=== PATIENT | male | born 1970 | race Caucasian/White ===

== ENCOUNTER 2023-09-24 11:48 | Observation (INO) ==
[2023-09-24 13:08] LABS: Hemoglobin 12.4 g/dl (14.0-18.0); Mean Corpuscular Hemoglobin 29.6 pg (25.0-34.0); Mean Corpuscular Hgb Conc 32.6 g/dL (32.0-36.0); Mean Corpuscular Volume 90.7 fL (80.0-100.0); Mean Platelet Volume 9.5 fL (9.4-12.4); Platelet Count 320 K/uL (130-400); RDW Coefficient of Variation 14.3 % (11.5-14.5); RDW Standard Deviation 46.8 fL (36.4-46.3); Red Blood Count 4.19 M/uL (4.70-6.10); White Blood Count 8.84 K/ul (4.8-10.8)
[2023-09-24 13:19] LABS: Partial Thromboplastin Ratio 0.9; Partial Thromboplastin Time 26.6 Seconds (21.0-31.0); Prothrombin Time 10.8 Seconds (9.0-12.0)
[2023-09-24 13:38] LABS: Albumin Level 4.4 gm/dl (3.4-5.0); Bilirubin,Total 0.4 mg/dl (0.2-1.0); Calcium 9.1 mg/dl (8.6-10.3); Potassium 4.4 mmol/L (3.5-5.1)
[2023-09-24 13:44] LABS: Albumin Globulin Ratio 1.3 (0.9-2); BUN Creatinine Ratio 27.3 (10-20); Creatinine Clr Calc Pharmacy 134.3 ml/min; Est GFR (African American) 112.1 ml/min; Est GFR (Non-African American) 96.7 ml/min; Globulin 3.4 gm/dl (2.5-4.0); Total Protein 7.8 gm/dl (6.0-8.3)
[2023-09-24] MEDS ORDERED: PANTOPRAZOLE BOLUS/DRIP IV STA (13:55)
[2023-09-24] MEDS ORDERED: SODIUM CHLORIDE 0.9% 1,000 ML IV ONE (13:55)
[2023-09-24] MEDS ORDERED: PANTOprazole 80 MG in DEXTROSE 5% 100 ML IV ONE (13:55)
--- NOTE | 2023-09-24 14:03 | Emergency Department Note ---
Impression & Plan GI bleed, Upper gastrointestinal hemorrhage ED Provider Note NAME: BRIAN ANDREWS AGE: 53 SEX: M : 1970 ARRIVES VIA: Walk-In INFORMANT: Patient ED PROVIDER(S): Jerome Jones DO CHIEF COMPLAINT: Black tarry stools HPI: Patient is a 83-year-old male who presents ER for black stools that have been present for about the past week. He notes they have become significantly worse over the past 2 days. Denies any headache or change in vision. No chest pain or shortness of breath. No nausea, vomiting, or diarrhea. He does admit to some bloating in his abdomen. No dysuria, urgency, or frequency. Was scoped back in May. ADDITIONAL HISTORY OBTAINED: Per HPI Chronic Medical/Social Conditions Affecting Care: Per HPI PAST MEDICAL HISTORY:See Below PAST SURGICAL HISTORY:See Below FAMILY HISTORY:See Below SOCIAL HISTORY:See Below HOME MEDICATIONS:See Below ALLERGIES:See Below VITALS:See Below PHYSICAL EXAMINATION: GENERAL: Sitting up in bed, alert, well appearing, well nourished, no distress, non-toxic EYE EXAM: normal conjunctiva. OROPHARYNX: no exudate, no erythema, lips, buccal mucosa, and tongue normal and mucous membranes are moist NECK: supple, no nuchal rigidity, no adenopathy, non-tender LUNGS: Clear to auscultation. Normal chest wall mechanics HEART: no murmurs, S1 normal and S2 normal ABDOMEN: abdomen soft, non-tender, normo-active bowel sounds, no masses, no rebound or guarding. RECTAL: Heme positive black stool UPPER EXTREMITIES: upper extremities are grossly normal. LOWER EXTREMITIES: No pitting edema. NEURO EXAM: Normal sensorium, cranial nerves II-XII grossly intact, normal speech, no gross weakness of arms, no gross weakness of legs. No drift. Finger to nose intact. Gross sensation intact. MEDICAL DECISION MAKING: Patient is a 53-year-old male who presents ER for black stools. IV was established blood work is obtained. Labs showed no significant leukocytosis or anemia. BMP along with LFTs bilirubin was unremarkable. Troponin was negative. BUN was elevated suggesting upper GI bleed. Hemoglobin did drop slightly from nearly 14 to 12.4. With this in the setting of black stools I discussed the case with the hospitalist for further evaluation to admission. Placed on a Protonix drip and bolus. External Records Reviewed: Follows with rheumatology Dr. Vee on 06/15/2023 for psoriasis Consults/Care Managements Discussions: Per MDM Triage Nursing notes reviewed. Limited review of prior medical records performed Vital Signs: reviewed and remarkable for tachy Differential diagnosis: Differential diagnoses includes but is not limited to gastritis, peptic ulcer disease, GERD, gallbladder disease, pancreatitis, small bowel obstruction, appendicitis, diverticulitis, hernia, urinary tract infection, torsion, perforation, trauma, infectious. ER treatment provided: See below Diagnostics interpreted by me include EKG and cardiac monitoring as listed below: -Cardiac Monitoring: An order was placed for continuous cardiac monitoring. The monitor shows a rate of 101 with sinus rhythm. -ECG: none -Laboratory studies:Interpreted by me as stated above in MDM and shown below. Imaging studies: Xrays: As interpreted by me:none CTs show: none Procedures:none Critical Care: None Past Med/Surg History Medical History (Updated 09/24/23 @ 17:00 by Jerome Jones DO) Psoriatic arthritis Surgical History (Updated 09/24/23 @ 15:38 by Kimberli Argueta PA-C) History of colonoscopy Family History (Updated 09/24/23 @ 15:38 by Kimberli Argueta PA-C) Other Coronary heart disease Social History (Updated 09/24/23 @ 15:38 by Kimberli Argueta PA-C) Smoking Status: Never smoker Hx Alcohol Use: Yes Hx Substance Use: No Feels Safe at Home: Yes Allergies Allergies Allergy/AdvReac Type Severity Reaction Status Date / Time No Known Allergies Allergy Mild Unverified 09/24/23 14:20 Home Meds Home Medications Medication Instructions Recorded Confirmed naproxen sodium 220 mg tablet 220 mg PO BID PRN Pain 09/24/23 09/24/23 (Aleve) Previous Rx's Medication Instructions Recorded guselkumab 100 mg/mL subcutaneous 100 mg subcut .COMPLEX #1 mL 06/04/23 auto-injector (Tremfya) Results & Data (ED) Vital Signs Vital Signs - 24 hr 09/24/23 12:06 09/24/23 14:13 Temperature 36.8 C Temperature Source Temporal Artery Scan Pulse Rate 110 H 105 H Respiratory Rate 20 Respiratory Effort / Characteristics Non-Labored Spontaneous Respiratory Depth Normal Respiratory Pattern Regular Blood Pressure 140/91 Blood Pressure Mean 107 Pulse Oximetry 98 Oxygen Delivery Method Room Air Sepsis Recent Fever Within 48 Hours No Sepsis New/Unexplained Change in Mental Status No Sepsis Action Taken by Nursing No Action Required Laboratory Data 09/24/23 12:51 09/24/23 12:51 Lab Results 09/24/23 Range/Units 12:51 WBC 8.84 (4.8-10.8) K/ul RBC 4.19 L (4.70-6.10) M/uL Hgb 12.4 L (14.0-18.0) g/dl Hct 38.0 L (42.0-52.0) % MCV 90.7 (80.0-100.0) fL MCH 29.6 (25.0-34.0) pg MCHC 32.6 (32.0-36.0) g/dL RDW Std Deviation 46.8 H (36.4-46.3) fL RDW Coeff of Azra 14.3 (11.5-14.5) % Plt Count 320 (130-400) K/uL MPV 9.5 (9.4-12.4) fL PT 10.8 (9.0-12.0) Seconds INR 1.0 (0.9-1.1) APTT 26.6 (21.0-31.0) Seconds PTT Ratio 0.9 Sodium 137 (136-145) mmol/L Potassium 4.4 (3.5-5.1) mmol/L Chloride 105 (98-107) mmol/L Carbon Dioxide 27 (21-32) mmol/L Anion Gap 5 (3-11) BUN 24 H (6-23) mg/dl Creatinine 0.88 (0.6-1.4) mg/dl Est Cr Clr Drug Dosing 134.3 ml/min Est GFR ( Amer) 112.1 ml/min Est GFR (Non-Af Amer) 96.7 ml/min BUN/Creatinine Ratio 27.3 H (10-20) Glucose 103 H (70-99(Fasting)) mg/dl Calcium 9.1 (8.6-10.3) mg/dl Total Bilirubin 0.4 (0.2-1.0) mg/dl AST 37 (13-39) U/L ALT 52 (7-52) U/L Alkaline Phosphatase 64 (34-104) U/L Troponin I High Sens 5.8 (0-20) pg/ml Total Protein 7.8 (6.0-8.3) gm/dl Albumin 4.4 (3.4-5.0) gm/dl Globulin 3.4 (2.5-4.0) gm/dl Albumin/Globulin Ratio 1.3 (0.9-2) Blood Type O Negative Antibody Screen NEGATIVE Administered Medications Pantoprazole Sodium 40 mg/ (Dextrose) 100 mls @ 20 mls/hr IV Q5H ALEXIS Stop: 10/24/23 14:14 Last Admin: 09/24/23 14:35 Dose: 8 mg/hr, 20 mls/hr Documented By: SCOTT Discontinued Medications Sodium Chloride (Nss) 1,000 mls @ 999 mls/hr IV .Q1H1M ONE Stop: 09/24/23 14:55 Last Infusion: 09/24/23 16:46 Dose: Infused Documented By: Admin: 09/24/23 14:20 Dose: 999 mls/hr Documented By: SCOTT Pantoprazole Sodium 80 mg/ (Dextrose) 120 mls @ 400 mls/hr IV NOW ONE Stop: 09/24/23 14:12 Last Infusion: 09/24/23 15:19 Dose: Infused Documented By: Admin: 09/24/23 14:35 Dose: 400 mls/hr Documented By: SCOTT Ioversol (Optiray 320 500ml) 95 ml IV ONCE ONE Stop: 09/24/23 15:59 Last Admin: 09/24/23 15:59 Dose: 95 ml Documented By: TASHI Pantoprazole Sodium (Pantoprazole Bolus/Drip) 1 each IV NOW STA Stop: 09/24/23 13:56 Last Admin: 09/24/23 14:36 Dose: Not Given Documented By: SCOTT Imaging Data Radiologist's Impression: Abdomen/Pelvis CT 09/24/23 15:31 CT SCAN OF THE ABDOMEN AND PELVIS WITH IV CONTRAST CLINICAL HISTORY: Generalized abdominal pain. COMPARISON STUDY: No priors. TECHNIQUE: Following the IV administration of 95 cc of Optiray 320, CT scan of the abdomen and pelvis is performed from the lung bases to the proximal femora. Images are reviewed in the axial, sagittal, and coronal planes. IV contrast was administered without complication. A dose lowering technique was utilized adhering to the principles of ALARA. CT DOSE: 1535.53 mGy.cm FINDINGS: Lung bases: The heart is normal in size and without pericardial effusion. Low suspicion foci of pleural-based nodularity in the right middle lobe measure up to 4 mm. These are of doubtful significance. The lung bases are otherwise clear. Liver: The contrast-enhanced liver is enlarged, measuring 22.5 cm in length. The liver demonstrates diffusely diminished attenuation indicating steatosis. Fatty sparing is seen adjacent to the gallbladder fossa.. There is no intrahepatic biliary ductal dilatation. The hepatic veins and portal veins are patent. Gallbladder: Unremarkable. Spleen: Normal in size and attenuation. Pancreas: Unremarkable. Adrenal glands: Unremarkable. Kidneys: The contrast enhanced kidneys are normal in size and without hydronephrosis. The kidneys enhance symmetrically. Abdominal vasculature: The abdominal aorta is normal in course and caliber noted is mild atherosclerotic calcification. Bowel: There is moderate colonic diverticulosis without CT evidence of acute diverticulitis. No bowel obstruction is seen. There is mild/moderate colonic fecal retention. A duodenal diverticulum is incidentally noted. The appendix is well-visualized and normal. Peritoneum: There is no intraperitoneal free air or abdominal ascites. There is a fat-containing umbilical hernia. Lymphadenopathy: None. Pelvic viscera: The prostate gland is mildly enlarged and heterogeneous. The bladder wall appears thickened and trabeculated indicating chronic outlet obstruction. Skeletal structures: No lytic or blastic lesions are seen. Mild degenerative change is noted in the spine. Degenerative sclerosis is noted in the sacroiliac joints. IMPRESSION: 1. No acute infectious or inflammatory findings are identified in the abdomen or pelvis. 2. Hepatomegaly and hepatic steatosis. 3. Colonic diverticulosis without CT evidence of acute diverticulitis. 4. Additional findings as above. ACT 112: Negative or not required by law. Electronically signed by: Deandre Keys M.D. 09/24/2023 4:23 PM Discharge Plan Visit Data Chief Complaint: GI Assessment Stated Complaint: STOMACH PAIN, BLACK STOOL ED Provider: Jerome Jones Discharge Problem: GI bleed, Upper gastrointestinal hemorrhage Forms Stand Alone Forms: My [employer] Prescriptions Prescriptions: No Action Tremfya 100 mg/mL auto-injector 100 mg subcut .COMPLEX Qty: 1 3RF Rx Instructions: 100 mg subcutaneously Every 12 weeks; naproxen sodium [Aleve] 220 mg Tablet 220 mg PO BID PRN (Reason: Pain) Referrals Referrals: Genaro Blanchard [Primary Care Provider] - Discharge Problem: GI bleed Qualifiers: GI bleed type/associated pathology: unspecified gastrointestinal hemorrhage type Qualified Code(s): K92.2 - Gastrointestinal hemorrhage, unspecified
[2023-09-24 14:05] LABS: Troponin I High Sensitivity 5.8 pg/ml (0-20)
[2023-09-24] MEDS ORDERED: PANTOprazole 40 MG in DEXTROSE 5% MINI-B 100 ML IV SCH (14:15)
--- NOTE | 2023-09-24 14:56 | History & Physical Report ---
Date of Service September 24, 2023 Assessment & Plan (1) Melena: (2) GI bleed: (3) Sinus tachycardia: Plan: Patient is 53 y/o M with PMH psoriatic arthritis presented to ER with c/o black stools x 2 days with intermittent abdominal discomfort and bloating. Uses Aleve 2-3x week In ER P: 105, BP: 140/91. H/H: 12.4/38 (Hgb was 13.9 on 03/14/23). BUN: 24, Cr: 0.8. +Hemoccult in ER In ER given 1L NSS, Protonix bolus and drip Monitor on telemetry Continue Protonix drip Type and cross PRBCs and hold Repeat H&H tonight Hold NSAIDs Obtain CT abd/pelvis Clear liquid diet NPO midnight GI consult CBC, BMP in am (4) Psoriatic arthritis: Plan: On Tremfya Follows with [facility] rheumatology Hold NSAIDs as above DVT Prophylaxis SCDs Full Code as per discussion with pt Follows with Genaro Lynn PA-C in [place] for routine care Pt was seen and care coordinated with Dr Portillo. See addendum History of Present Illness Chief Complaint: Dark stools Primary Care Provider: Genaro Lynn Patient is 53 y/o M with PMH psoriatic arthritis presented to ER with c/o black stools x 2 days. History obtained from patient and outpatient chart review. Patient states yesterday and today noticed black color BM's. Prior to that noti caitlin stools darker in coloration. Denies diarrhea. Denies bright red blood per rectum. States for past 1-1.5months with intermittent diffuse lower abdominal discomfort. Has also noticed bloating sensation past month. Takes OTC Aleve 2 pills two-three times a week for arthritis pain. Last used 2 days ago. Denies other NSAID or aspirin use. States occasional alcohol use. Reports history colonoscopy at [facility] summer 2022 with reported polyps and diverticulosis. Denies history EGD. Denies fever/chills, diaphoresis, N/V, GAXIOLA, dizziness, syncope, vision changes, neck pain, CP, SOB, palpitations, cough, paresthesias, weakness, extremity edema, rashes, urinary symptoms. Allergies Allergy/AdvReac Type Severity Reaction Status Date / Time No Known Allergies Allergy Mild Unverified 09/24/23 14:20 Home Medications Medication Instructions Recorded Confirmed Type guselkumab 100 mg/mL subcutaneous 100 mg subcut .COMPLEX #1 mL 06/04/23 09/24/23 Rx auto-injector (Tremfya) naproxen sodium 220 mg tablet 220 mg PO BID PRN Pain 09/24/23 09/24/23 History (Aleve) Past Med/Surg History Medical History Psoriatic arthritis Surgical History History of colonoscopy Family History Other Coronary heart disease Social History Smoking Status: Never smoker Hx Alcohol Use: Yes Hx Substance Use: No Feels Safe at Home: Yes Review of Systems Review of Systems: All systems reviewed & are unremarkable except as noted in HPI & below Physical Exam Physical Exam: General: no distress, obese Head: normocephalic, atraumatic Eyes: conjunctiva non-injected, anicteric ENT: normal inspection external ears, nose, mucous membranes moist Neck: supple, trachea midline Lungs: clear, no respiratory distress, no wheezing/rhonchi/rales CV: tachycardia, rate 104, regular rhythm, no murmur, no pretibial edema Abd: protuberant, normal BS, soft, slight tenderness to palpation mid abdomen without guarding Ext: no cyanosis, no calf tenderness Neuro: A&O x 3, no focal deficits noted, normal affect Skin: warm, dry, +scattered plaques Results & Data Results & Data Vital Signs (Past 12 Hours) Vital Signs Temp Pulse Resp BP Pulse Ox O2 Del Method 09/24/23 14:13 105 H 09/24/23 12:06 36.8 C 110 H 20 140/91 98 Room Air Laboratory Results Short CBC 09/24/23 Range/Units 12:51 WBC 8.84 (4.8-10.8) K/ul Hgb 12.4 L (14.0-18.0) g/dl Hct 38.0 L (42.0-52.0) % Plt Count 320 (130-400) K/uL BMP 09/24/23 12:51 Sodium 137 Potassium 4.4 Chloride 105 Carbon Dioxide 27 BUN 24 H Creatinine 0.88 Glucose 103 H Calcium 9.1 Liver Function 09/24/23 Range/Units 12:51 Total Bilirubin 0.4 (0.2-1.0) mg/dl AST 37 (13-39) U/L ALT 52 (7-52) U/L Alkaline Phosphatase 64 (34-104) U/L Albumin 4.4 (3.4-5.0) gm/dl ECG Additional Comments: sinus tachycardia, rate 109 per my interpretation Supervising Physician Co-Signing Physician Notes Patient is a 53-year-old male with history of psoriatic arthritis and no other significant past medical history presents with history of black stools since 2 days duration. He admits to have polyps and diverticulosis on prior colonoscopy. He also believes he could have hemorrhoids. He uses Aleve 2-3 times per week for psoriatic arthritis. Please review HPI for complete details of presentation. I personally reviewed blood work, imaging studies available at the time of admission. On exam patient is obese, no apparent distress, normocephalic atraumatic, EOMI, normal breath sounds, clear to auscultation, S1- S2, no murmur, trace pedal edema, abdomen soft, mild tender, normal bowel sounds, mildly distended, alert, awake, oriented, grossly no focal deficits,+ scattered psoriatic rash. Patient is admitted for management of melena. Agree with IV Protonix, gentle IV fluids. Monitor H&H and transfuse PRBCs as needed. CT abdomen requested. GI consulted. N.p.o. after midnight. Avoid NSAIDs. Blood consent obtained. I personally reviewed the record. Patient is interviewed and examined at bedside. Patient's care is coordinated with Kimberli Argueta PA-C. Please refer to the documentation above for details of patient's presentation and for discussion of other issues.
--- NOTE | 2023-09-24 15:42 | Electrocardiogram Report ---
Test Reason : Blood Pressure : / mmHG Vent. Rate : 109 BPM Atrial Rate : 109 BPM P-R Int : 150 ms QRS Dur : 112 ms QT Int : 346 ms P-R-T Axes : 066 -08 006 degrees QTc Int : 465 ms Sinus tachycardia Poor R wave progression, consider anterior [place] vs. lead placement vs. LVH No previous ECGs available Confirmed by Jay Dejesus ([id number]) on 09/24/2023 3:42:35 PM Referred By: Confirmed By:Randy Dejesus
[2023-09-24] MEDS ORDERED: OPTIRAY 320 500ml IV ONE (15:58)
--- NOTE | 2023-09-24 16:25 | CT Scan Report ---
CT SCAN OF THE ABDOMEN AND PELVIS WITH IV CONTRAST CLINICAL HISTORY: Generalized abdominal pain. COMPARISON STUDY: No priors. TECHNIQUE: Following the IV administration of 95 cc of Optiray 320, CT scan of the abdomen and pelvi s is performed from the lung bases to the proximal femora. Images are reviewed in the axial, sagittal , and coronal planes. IV contrast was administered without complication. A dose lowering technique wa s utilized adhering to the principles of ALARA. CT DOSE: 1535.53 mGy.cm FINDINGS: Lung bases: The heart is normal in size and without pericardial effusion. Low suspicion foci of pleur al-based nodularity in the right middle lobe measure up to 4 mm. These are of doubtful significance. The lung bases are otherwise clear. Liver: The contrast-enhanced liver is enlarged, measuring 22.5 cm in length. The liver demonstrates d iffusely diminished attenuation indicating steatosis. Fatty sparing is seen adjacent to the gallbladd er fossa.. There is no intrahepatic biliary ductal dilatation. The hepatic veins and portal veins are patent. Gallbladder: Unremarkable. Spleen: Normal in size and attenuation. Pancreas: Unremarkable. Adrenal glands: Unremarkable. Kidneys: The contrast enhanced kidneys are normal in size and without hydronephrosis. The kidneys enh ance symmetrically. Abdominal vasculature: The abdominal aorta is normal in course and caliber noted is mild atherosclero tic calcification. Bowel: There is moderate colonic diverticulosis without CT evidence of acute diverticulitis. No bowel obstruction is seen. There is mild/moderate colonic fecal retention. A duodenal diverticulum is inci dentally noted. The appendix is well-visualized and normal. Peritoneum: There is no intraperitoneal free air or abdominal ascites. There is a fat-containing umbi lical hernia. Lymphadenopathy: None. Pelvic viscera: The prostate gland is mildly enlarged and heterogeneous. The bladder wall appears thi ckened and trabeculated indicating chronic outlet obstruction. Skeletal structures: No lytic or blastic lesions are seen. Mild degenerative change is noted in the s pine. Degenerative sclerosis is noted in the sacroiliac joints. IMPRESSION: 1. No acute infectious or inflammatory findings are identified in the abdomen or pelvis. 2. Hepatomegaly and hepatic steatosis. 3. Colonic diverticulosis without CT evidence of acute diverticulitis. 4. Additional findings as above. ACT 112: Negative or not required by law. Electronically signed by: Deandre Keys M.D. 09/24/2023 4:23 PM
[2023-09-24] MEDS ORDERED: SODIUM CHLORIDE 0.9% 250 ML IV PRN (17:49)
[2023-09-24] MEDS ORDERED: ONDANSETRON INJ 2 MG/ML 2 ML VIAL IV PRN (17:49)
[2023-09-24] MEDS ORDERED: SODIUM CHLORIDE 0.9% 1,000 ML IV SCH (17:49)
[2023-09-24] MEDS ORDERED: ACETAMINOPHEN 325 MG TAB PO PRN (17:49)
[2023-09-24] MEDS: PANTOprazole 40 MG in DEXTROSE 5% MINI-B 100 ML IV SCH ×2 (19:48→23:52)
[2023-09-24 20:04] LABS: Hemoglobin 10.9 g/dl (14.0-18.0)
[2023-09-25] MEDS: PANTOprazole 40 MG in DEXTROSE 5% MINI-B 100 ML IV SCH ×2 (05:24→10:23)
[2023-09-25 07:12] LABS: Hematocrit (blood only) 29.7 % (42.0-52.0); Hemoglobin 9.9 g/dl (14.0-18.0); Mean Corpuscular Hemoglobin 29.3 pg (25.0-34.0); Mean Corpuscular Hgb Conc 33.3 g/dL (32.0-36.0); Mean Corpuscular Volume 87.9 fL (80.0-100.0); Mean Platelet Volume 9.9 fL (9.4-12.4); Platelet Count 244 K/uL (130-400); RDW Coefficient of Variation 14.3 % (11.5-14.5); RDW Standard Deviation 45.5 fL (36.4-46.3); Red Blood Count 3.38 M/uL (4.70-6.10); White Blood Count 6.64 K/ul (4.8-10.8)
[2023-09-25 07:28] LABS: BUN Creatinine Ratio 27.9 (10-20); Creatinine Clr Calc Pharmacy 174.5 ml/min; Est GFR (African American) 124.6 ml/min; Est GFR (Non-African American) 107.5 ml/min
--- NOTE | 2023-09-25 08:11 | Hospitalist Progress Note ---
Date of Service September 25, 2023 Assessment & Plan (1) Melena: (2) GI bleed: (3) Sinus tachycardia: Plan: Patient is 53 y/o M with PMH psoriatic arthritis presented to ER with c/o black stools x 2 days with intermittent abdominal discomfort and bloating. Uses Aleve 2-3x week In ER P: 105, BP: 140/91. H/H: 12.4/38 (Hgb was 13.9 on 03/14/23). BUN: 24, Cr: 0.8. +Hemoccult in ER In ER given 1L NSS, Protonix bolus and drip Monitor on telemetry Continue Protonix drip Type and cross PRBCs and hold Repeat H&H tonight Hold NSAIDs Obtained CT abd/pelvis - 1. No acute infectious or inflammatory findings are identified in the abdomen or pelvis. 2. Hepatomegaly and hepatic steatosis. 3. Colonic diverticulosis without CT evidence of acute diverticulitis. Current Hgb 9.9 GI consulted - pt underwent EGD today (09/25/2023) Findings: LA Grade A (one or more mucosal breaks less than 5 mm, not extending between tops of 2 mucosal folds) esophagitis with no bleeding was found. Two non-bleeding superficial gastric ulcers with a clean ulcer base (Kaleb Class III) were found in the gastric antrum. The largest lesion was 5 mm in largest dimension. Biopsies were taken with a cold forceps for Helicobacter pylori testing. One non-bleeding cratered duodenal ulcer with a clean ulcer base (Kaleb Class III) was found in the duodenal bulb. The lesion was 6 mm in largest dimension. Impression: - LA Grade A reflux esophagitis with no bleeding. - Non-bleeding gastric ulcers with a clean ulcer base (Kaleb Class III). Biopsied. - Non-bleeding duodenal ulcer with a clean ulcer base (Kaleb Class III). Recommendation: - [facility] discharge same day. - Use Prilosec (omeprazole) 40 mg PO BID for 2 months. - No aspirin, ibuprofen, naproxen, or other non-steroidal anti-inflammatory drugs. - Advance diet as tolerated. - Repeat upper endoscopy in 2 months to check healing. Pt is feeling well after endoscopy. Advised not to use NSAIDs. Avoid acidic, spicy foods, caffein and alcohol. Pt has a follow up appointment scheduled w/ pcp for 10/02. PPI prescribed. Should continue for 2 months. Repeat endoscopy in 2 months to ensure healing. (4) Psoriatic arthritis: Plan: On Tremfya Follows with [facility] rheumatology Hold NSAIDs as above DVT Prophylaxis SCDs Full Code as per discussion with pt Follows with Genaro Lynn PA-C in [place] for routine care Admission and Anticipated Discharge Date Admission Date: September 24, 2023 Subjective Pt seen in follow up of melena Hgb 9.9 this AM GI consulted and pt underwent EGD- esophagitis, gastric ulcers, duodenal ulcer Currently pt is feeling well and inquiring about discharge Review of Systems Review of Systems: All systems reviewed & are unremarkable except as noted in Subjective Physical Exam Physical Exam: General: no distress, obese Head: normocephalic, atraumatic Eyes: conjunctiva non-injected, anicteric ENT: normal inspection external ears, nose, mucous membranes moist Neck: supple, trachea midline Lungs: clear, no respiratory distress, no wheezing/rhonchi/rales CV: rrr, regular rhythm, no murmur, no pretibial edema Abd: +obese, normal BS, soft, slight tenderness to palpation mid abdomen without guarding Ext: moves extremities Neuro: A&O x 3, no focal deficits noted, normal affect Skin: warm, dry, +scattered plaques Results & Data Results & Data Vital Signs (Past 12 Hours) Vital Signs Temp Pulse Pulse Resp BP BP Pulse Ox 09/25/23 05:58 85 09/25/23 03:34 36.6 C 87 18 118/77 98 09/24/23 23:53 36.6 C 93 H 18 127/82 97 09/24/23 23:07 36.6 C 93 H 18 127/82 97 O2 Del Method 09/25/23 05:58 09/25/23 03:34 Room Air 09/24/23 23:53 Room Air 09/24/23 23:07 Room Air Laboratory Results 09/25/23 09/24/23 09/24/23 Range/Units 06:26 19:43 12:51 WBC 6.64 8.84 (4.8-10.8) K/ul RBC 3.38 L 4.19 L (4.70-6.10) M/uL Hgb 9.9 L 10.9 L 12.4 L (14.0-18.0) g/dl Hct 29.7 L 33.0 L 38.0 L (42.0-52.0) % MCV 87.9 90.7 (80.0-100.0) fL MCH 29.3 29.6 (25.0-34.0) pg MCHC 33.3 32.6 (32.0-36.0) g/dL RDW Std Deviation 45.5 46.8 H (36.4-46.3) fL RDW Coeff of Azra 14.3 14.3 (11.5-14.5) % Plt Count 244 320 (130-400) K/uL MPV 9.9 9.5 (9.4-12.4) fL PT 10.8 (9.0-12.0) Seconds INR 1.0 (0.9-1.1) APTT 26.6 (21.0-31.0) Seconds PTT Ratio 0.9 Sodium 138 137 (136-145) mmol/L Potassium 4.0 4.4 (3.5-5.1) mmol/L Chloride 107 105 (98-107) mmol/L Carbon Dioxide 26 27 (21-32) mmol/L Anion Gap 5 5 (3-11) BUN 19 24 H (6-23) mg/dl Creatinine 0.68 0.88 (0.6-1.4) mg/dl Est Cr Clr Drug Dosing 174.5 134.3 ml/min Est GFR ( Amer) 124.6 112.1 ml/min Est GFR (Non-Af Amer) 107.5 96.7 ml/min BUN/Creatinine Ratio 27.9 H 27.3 H (10-20) Glucose 110 H 103 H (70-99(Fasting)) mg/dl Calcium 8.0 L 9.1 (8.6-10.3) mg/dl Total Bilirubin 0.4 (0.2-1.0) mg/dl AST 37 (13-39) U/L ALT 52 (7-52) U/L Alkaline Phosphatase 64 (34-104) U/L Troponin I High Sens 5.8 (0-20) pg/ml Total Protein 7.8 (6.0-8.3) gm/dl Albumin 4.4 (3.4-5.0) gm/dl Globulin 3.4 (2.5-4.0) gm/dl Albumin/Globulin Ratio 1.3 (0.9-2) Blood Type O Negative Blood Type Recheck O Negative Antibody Screen NEGATIVE Medications Administered Current Inpatient Medications Acetaminophen (Acetaminophen 325 Mg Tab) 650 mg PO Q4H PRN PRN Reason: Pain or Fever Stop: 10/24/23 17:48 Pantoprazole Sodium 40 mg/ (Dextrose) 100 mls @ 20 mls/hr IV Q5H ALEXIS Stop: 10/24/23 17:48 Last Admin: 09/25/23 05:24 Dose: 8 mg/hr, 20 mls/hr Ondansetron HCl (Ondansetron Inj 2 Mg/Ml 2 Ml Vial) 4 mg IV Q6H PRN PRN Reason: Nausea Stop: 10/24/23 17:48 (2) GI bleed GI bleed type/associated pathology: unspecified gastrointestinal hemorrhage type Qualified Code(s): K92.2 - Gastrointestinal hemorrhage, unspecified
--- NOTE | 2023-09-25 10:43 | Anesthesiology Consultation ---
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 Consults Requested none Proposed Anesthesia Anesthesia Type: MAC History Surgery Operation Date: 09/25/23 16:45 Proposed Procedures p Esophagogastroduodenoscopy Dr Stephanie Brown MD Height/Weight Height: 6 ft Weight: 134.9 kg Allergies Allergy/AdvReac Type Severity Reaction Status Date / Time No Known Allergies Allergy Mild Unverified 09/24/23 14:20 Medications Home Medications Medication Instructions Recorded Confirmed Last Taken guselkumab 100 mg/mL subcutaneous 100 mg subcut .COMPLEX #1 mL 06/04/23 09/24/23 2 Months Ago auto-injector (Tremfya) ~07/25/23 naproxen sodium 220 mg tablet 220 mg PO BID PRN Pain 09/24/23 09/24/23 Unknown (Aleve) Active Medications Generic Name Dose Route Start Last Admin Trade Name Freq PRN Reason Stop Dose Admin Pantoprazole Sodium 40 mg/ 100 mls @ 20 mls/hr 09/24/23 17:49 09/25/23 10:23 Dextrose IV 10/24/23 17:48 8 mg/hr Q5H ALEXIS 20 mls/hr Administration 8 MG/HR Past Medical History Medical History (Updated 09/25/23 @ 10:45 by Jay Baird MD) Encounter for pre-operative examination Psoriatic arthritis Past Family History Family History Other Coronary heart disease Past Surgical History Surgical History History of colonoscopy Social History Smoking Status: Former smoker Hx Alcohol Use: Yes Alcohol type: beer alcohol intake frequency: holidays/special occasions only Hx Substance Use: No Physical Exam Vital Signs Last Vital Signs Temp 36.6 C 09/25/23 08:14 Pulse 84 09/25/23 08:14 Resp 17 09/25/23 08:14 BP 123/78 09/25/23 08:14 Pulse Ox 96 09/25/23 08:14 O2 Del Method Room Air 09/25/23 08:14 Testing Laboratory Results 09/25/23 06:26 09/25/23 06:26 PT 10.8 Seconds (9.0-12.0) 09/24/23 12:51 INR 1.0 (0.9-1.1) 09/24/23 12:51 APTT 26.6 Seconds (21.0-31.0) 09/24/23 12:51 Blood Type O Negative 09/24/23 12:51 Antibody Screen NEGATIVE 09/24/23 12:51 Electrocardiogram Date: 09/24/23 Test Reason : Blood Pressure : / mmHG Vent. Rate : 109 BPM Atrial Rate : 109 BPM P-R Int : 150 ms QRS Dur : 112 ms QT Int : 346 ms P-R-T Axes : 066 -08 006 degrees QTc Int : 465 ms Sinus tachycardia Poor R wave progression, consider anterior NE vs. lead placement vs. LVH No previous ECGs available Confirmed by Jay Dejesus ([id number]) on 09/24/2023 3:42:35 PM
--- NOTE | 2023-09-25 10:48 | Gastrointestinal Consultation ---
Date of Consultation September 25, 2023 Assessment & Plan (1) Melena: (2) Acute blood loss anemia: Plan Agree w PPI drip, IV fluids, NPO EGD today by Dr. Brown. Further recommendations to follow. Supervising Physician Co-Signing Physician Notes Attending attestation I have seen, examined this patient, and agree with the findings and above by our mid-level provider ANDREY Ramachandran, with the following additions: - Melena without Hemodynamic compromise, will plan on EGD today History of Present Illness Reason for Consultation: Melena Requesting Physician: Lorelei Cabrera PA-C Attending Physician: Diony Lizarraga MD History of Present Illness Mr. Willy Tai is a 53-year-old male patient of IHSAN Bishop with a history of psoriatic arthritis on Tremfya, taking Aleve 2 tabs every 3x/wk), otherwise and diverticulosis no significant past medical/surgical history who presented to the emergency department yesterday because he has had black bowel movements. Bowel movements continue to be formed but are very black. He has passed 1/day for the past 2 or 3 days. He has also had abdominal bloating during this time. He has not had any chest pain, shortness of breath, abdominal pain or nausea or vomiting. On arrival, hemoglobin is 10.9. Most recent prior hemoglobin in February was 13.9. CTAP with IV shows hepatomegaly and fatty liver (patient was aware previously) and diverticulosis. He is awake alert oriented, hemodynamically stable, able to ambulate without assistance. He has never previously had an EGD. He has had colonoscopies most recently in May of this year with diverticulosis no other abnormalities. When asked about prior abdominal problems, he mentioned that he had nausea about a year ago when he was on written [place]. When that medication was changed and nausea resolved. Allergies Allergy/AdvReac Type Severity Reaction Status Date / Time No Known Allergies Allergy Mild Unverified 09/24/23 14:20 Home Medications Medication Instructions Recorded Confirmed Type guselkumab 100 mg/mL subcutaneous 100 mg subcut .COMPLEX #1 mL 06/04/23 09/24/23 Rx auto-injector (Tremfya) naproxen sodium 220 mg tablet 220 mg PO BID PRN Pain 11/29/23 11/29/23 History (Aleve) Patient History Medical History (Updated 09/25/23 @ 10:57 by ANDREY Solis) Encounter for pre-operative examination Psoriatic arthritis Surgical History History of colonoscopy Family History Other Coronary heart disease Social History Smoking Status: Former smoker Hx Alcohol Use: Yes Alcohol type: beer Hx Substance Use: No Preferred Language: Latvian 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 Saxophones Required: No Beliefs That Will Affect Care: None Current Living Situation: Family Current Living Situation Comment: Lives at home with son and daughter Feels Safe at Home: Yes Safety Concerns: Feels Safe At This Time Assistive Devices: None Review of Systems Review of Systems: ROS: Gen: Denies weakness, fevers, weight loss Eyes: No eye redness, or pain, no recent vision changes Resp: No SOB, no cough Cardio: No palpitations/irregular beats, no chest pain GI: As per HPI, otherwise (-) : Denies pain on urination Skin: No jaundice, itching or new rashes Physical Exam Constitutional: WD/WN, vitals as above Eyes: PERRL, conjunctivae normal, anicteric sclerae ENMT: external ear and nose normal, oropharynx normal Neck: trachea midline, no thyromegaly Respiratory: normal respiratory effort, lungs clear to auscultation Cardiovascular: RRR, no murmur, no edema Gastrointestinal (Abdomen): normal bowel sounds, soft, nontender, no hepatosplenomegaly Musculoskeletal: no cyanosis or clubbing, extremities motor strength 5/5 + arthritic nodules of the MCPs, PIPs. Skin: no rashes, warm and dry Neurologic: patellar DTR's 2+ bilat, sensation intact Psychiatric: A+Ox3, euthymic affect Lymphatic: no cervical or axillary lymphadenopathy Results & Data Vital Signs (Past 12 Hours) Vital Signs Temp Pulse Pulse Resp BP BP Pulse Ox 09/25/23 08:14 36.6 C 84 17 123/78 96 09/25/23 05:58 85 09/25/23 03:34 36.6 C 87 18 118/77 98 09/24/23 23:53 36.6 C 93 H 18 127/82 97 09/24/23 23:07 36.6 C 93 H 18 127/82 97 O2 Del Method 09/25/23 08:14 Room Air 09/25/23 05:58 09/25/23 03:34 Room Air 09/24/23 23:53 Room Air 09/24/23 23:07 Room Air Laboratory Results WBC 8.8, Hb 10.9, HCT 33, PLT S3 20, PT 10, INR 1, NA 137, K4.4, CL 105, CO2 27, BUN 24, CR 0.8, glucose 103 T. bili 0.4, AST 37, ALT 52, alk phos 64 Diagnostic Findings CTAP with IV 09/24/2023 1. No acute infectious or inflammatory findings are identified in the abdomen or pelvis. 2. Hepatomegaly and hepatic steatosis. 3. Colonic diverticulosis without CT evidence of acute diverticulitis.
--- NOTE | 2023-09-25 12:19 | GI REPORT ---
Patient Name: Willy Tai Procedure Date: 09/25/2023 12:09 PM Date of : 1970 Admit Type: Inpatient Age: 53 Gender: Male Attending MD: Contreras Brown MD, Procedure: Upper GI endoscopy Providers: Contreras Brown MD Referring MD: Genaro Blanchard Indications: Melena Medicines: Propofol per Anesthesia Complications: No immediate complications. Estimated blood loss: None. Estimated Blood Loss: Estimated blood loss: none. Procedure: Pre-Anesthesia Assessment: - Pre-Anesthesia Assessment: - Prior to the procedure, a History and Physical was performed, and patient medications, allergies and sensitivities were reviewed. The patient's tolerance of previous anesthesia was reviewed. Please see alaTest for complete details. - The risks and benefits of the procedure and the sedation options and risks were discussed with the patient. All questions were answered and informed consent was obtained. - Patient identification and proposed procedure were verified prior to the procedure by the physician and the nurse. The procedure was verified in the pre-procedure area in the procedure room. After obtaining informed consent, the endoscope was passed carefully and meticuously under direct vision and only advanced when the lumen was clearly identified, C02 insuflation was utilized throughout the entirity of the procedure. Throughout the procedure, the patient's blood pressure, pulse, and oxygen saturations were monitored continuously. After obtaining informed consent, the endoscope was passed under direct vision. Throughout the procedure, the patient's blood pressure, pulse, and oxygen saturations were monitored continuously. The Endoscope was introduced through the mouth, and advanced to the second part of duodenum. The upper GI endoscopy was accomplished without difficulty. The patient tolerated the procedure well. Findings: LA Grade A (one or more mucosal breaks less than 5 mm, not extending between tops of 2 mucosal folds) esophagitis with no bleeding was found. Two non-bleeding superficial gastric ulcers with a clean ulcer base (Kaleb Class III) were found in the gastric antrum. The largest lesion was 5 mm in largest dimension. Biopsies were taken with a cold forceps for Helicobacter pylori testing. One non-bleeding cratered duodenal ulcer with a clean ulcer base (Kaleb Class III) was found in the duodenal bulb. The lesion was 6 mm in largest dimension. Impression: - LA Grade A reflux esophagitis with no bleeding. - Non-bleeding gastric ulcers with a clean ulcer base (Kaleb Class III). Biopsied. - Non-bleeding duodenal ulcer with a clean ulcer base (Kaleb Class III). Recommendation: - Return patient to [facility] for possible discharge same day. - Use Prilosec (omeprazole) 40 mg PO BID for 2 months. - No aspirin, ibuprofen, naproxen, or other non-steroidal anti-inflammatory drugs. - Advance diet as tolerated. - Repeat upper endoscopy in 2 months to check healing. Contreras Brown MD 09/25/2023 12:19:10 PM This report has been signed electronically. Note Initiated On: 09/25/2023 12:09 PM Number of Addenda: 0 I attest to the content of the Intraoperative Record and orders documented therein, exceptions below {[id number]}
[2023-09-25] MEDS ORDERED: LIDOCAINE 2% 2 ML VIAL/AMP(20MG/ML) INFIL ONE (12:21)
[2023-09-25] MEDS ORDERED: PROPOFOL IV EMULSION 10 MG/ML 20 ML VIAL IV ONE (12:21)
--- NOTE | 2023-09-25 13:51 | Discharge Summary ---
Date of Service September 25, 2023 Admission HPI Per Admitting Provider Patient is 53 y/o M with PMH psoriatic arthritis presented to ER with c/o black stools x 2 days. History obtained from patient and outpatient chart review. Patient states yesterday and today noticed black color BM's. Prior to that noticed stools darker in coloration. Denies diarrhea. Denies bright red blood per rectum. States for past 1-1.5months with intermittent diffuse lower abdominal discomfort. Has also noticed bloating sensation past month. Takes OTC Aleve 2 pills two-three times a week for arthritis pain. Last used 2 days ago. Denies other NSAID or aspirin use. States occasional alcohol use. Reports h istory colonoscopy at [facility] summer 2022 with reported polyps and diverticulosis. Denies history EGD. Denies fever/chills, diaphoresis, N/V, GAXIOLA, dizziness, syncope, vision changes, neck pain, CP, SOB, palpitations, cough, paresthesias, weakness, extremity edema, rashes, urinary symptoms. Admission Exam Per Admitting Provider General: no distress, obese Head: normocephalic, atraumatic Eyes: conjunctiva non-injected, anicteric ENT: normal inspection external ears, nose, mucous membranes moist Neck: supple, trachea midline Lungs: clear, no respiratory distress, no wheezing/rhonchi/rales CV: tachycardia, rate 104, regular rhythm, no murmur, no pretibial edema Abd: protuberant, normal BS, soft, slight tenderness to palpation mid abdomen without guarding Ext: no cyanosis, no calf tenderness Neuro: A&O x 3, no focal deficits noted, normal affect Skin: warm, dry, +scattered plaques Principal Diagnosis Esophagitis, gastric ulcers, duodenal ulcer Discharge Exam General: no distress, obese Head: normocephalic, atraumatic Eyes: conjunctiva non-injected, anicteric ENT: normal inspection external ears, nose, mucous membranes moist Neck: supple, trachea midline Lungs: clear, no respiratory distress, no wheezing/rhonchi/rales CV: rrr, regular rhythm, no murmur, no pretibial edema Abd: +obese, normal BS, soft, slight tenderness to palpation mid abdomen without guarding Ext: moves extremities Neuro: A&O x 3, no focal deficits noted, normal affect Skin: warm, dry, +scattered plaques Discharge Data Allergies Allergy/AdvReac Type Severity Reaction Status Date / Time No Known Allergies Allergy Mild Unverified 09/24/23 14:20 Consultations 09/24/23 14:13 ED Decision to Admit Stat 09/24/23 17:49 Consult Gastroenterology Routine Procedures Performed Operation Date: 09/25/23 16:45 Actual Procedures p EGD Biopsy Cytology - Contreras Brown MD Ordered Studies 09/24/23 15:31 CT Abd and Pelvis [CT abd pelvis IV con only] Urgent FINDINGS: Lung bases: The heart is normal in size and without pericardial effusion. Low suspicion foci of pleural-based nodularity in the right middle lobe measure up to 4 mm. These are of doubtful significance. The lung bases are otherwise clear. Liver: The contrast-enhanced liver is enlarged, measuring 22.5 cm in length. The liver demonstrates diffusely diminished attenuation indicating steatosis. Fatty sparing is seen adjacent to the gallbladder fossa.. There is no intrahepatic biliary ductal dilatation. The hepatic veins and portal veins are patent. Gallbladder: Unremarkable. Spleen: Normal in size and attenuation. Pancreas: Unremarkable. Adrenal glands: Unremarkable. Kidneys: The contrast enhanced kidneys are normal in size and without hydronephrosis. The kidneys enhance symmetrically. Abdominal vasculature: The abdominal aorta is normal in course and caliber noted is mild atherosclerotic calcification. Bowel: There is moderate colonic diverticulosis without CT evidence of acute diverticulitis. No bowel obstruction is seen. There is mild/moderate colonic fecal retention. A duodenal diverticulum is incidentally noted. The appendix is well-visualized and normal. Peritoneum: There is no intraperitoneal free air or abdominal ascites. There is a fat-containing umbilical hernia. Lymphadenopathy: None. Pelvic viscera: The prostate gland is mildly enlarged and heterogeneous. The bladder wall appears thickened and trabeculated indicating chronic outlet obstruction. Skeletal structures: No lytic or blastic lesions are seen. Mild degenerative change is noted in the spine. Degenerative sclerosis is noted in the sacroiliac joints. IMPRESSION: 1. No acute infectious or inflammatory findings are identified in the abdomen or pelvis. 2. Hepatomegaly and hepatic steatosis. 3. Colonic diverticulosis without CT evidence of acute diverticulitis. 4. Additional findings as above. Hospital Course (1) Melena: (2) GI bleed: (3) Sinus tachycardia: Patient is 53 y/o M with PMH psoriatic arthritis presented to ER with c/o black stools x 2 days with intermittent abdominal discomfort and bloating. Uses Aleve 2-3x week In ER P: 105, BP: 140/91. H/H: 12.4/38 (Hgb was 13.9 on 03/14/23). BUN: 24, Cr: 0.8. +Hemoccult in ER In ER given 1L NSS, Protonix bolus and drip Monitor on telemetry Continue Protonix drip Type and cross PRBCs and hold Repeat H&H tonight Hold NSAIDs Obtained CT abd/pelvis - 1. No acute infectious or inflammatory findings are identified in the abdomen or pelvis. 2. Hepatomegaly and hepatic steatosis. 3. Colonic diverticulosis without CT evidence of acute diverticulitis. Current Hgb 9.9 GI consulted - pt underwent EGD today (09/25/2023) Findings: LA Grade A (one or more mucosal breaks less than 5 mm, not extending between tops of 2 mucosal folds) esophagitis with no bleeding was found. Two non-bleeding superficial gastric ulcers with a clean ulcer base (Kaleb Class III) were found in the gastric antrum. The largest lesion was 5 mm in largest dimension. Biopsies were taken with a cold forceps for Helicobacter pylori testing. One non-bleeding cratered duodenal ulcer with a clean ulcer base (Kaleb Class III) was found in the duodenal bulb. The lesion was 6 mm in largest dimension. Impression: - LA Grade A reflux esophagitis with no bleeding. - Non-bleeding gastric ulcers with a clean ulcer base (Kaleb Class III). Biopsied. - Non-bleeding duodenal ulcer with a clean ulcer base (Kaleb Class III). Recommendation: - [facility] to [facility] for possible discharge same day. - Use Prilosec (omeprazole) 40 mg PO BID for 2 months. - No aspirin, ibuprofen, naproxen, or other non-steroidal anti-inflammatory drugs. - Advance diet as tolerated. - Repeat upper endoscopy in 2 months to check healing. Pt is feeling well after endoscopy. Advised not to use NSAIDs. Avoid acidic, spicy foods, caffein and alcohol. Pt has a follow up appointment scheduled w/ pcp for 10/02. PPI prescribed. Should continue for 2 months. Repeat endoscopy in 2 months to ensure healing. (4) Psoriatic arthritis: On Tremfya Follows with [facility] rheumatology Hold NSAIDs as above Total Time Total Time Spent Total Time Spent (In Minutes): 40 Discharge Plan Discharge Items Patient Disposition: Home - Self-Care Reason For Visit: MELENA Discharge Diagnosis: Esophagitis, gastric ulcers, duodenal ulcer Activity: Per Instructions section Non-emergency contact: Primary Care Provider Call non-emergency contact if: you have any medication questions and your symptoms worsen Follow-up/Referrals: Genaro Blanchard [Primary Care Provider] - 10/02/23 7:20 am Diet: Regular Diet Comment: Avoid caffeine, alcohol, spicy or acidic foods Addtl Attending Provider Instructions: Follow up with your primary care physician within 1 week. The appointment was scheduled for you for October 02. Do not take any aspirin, ibuprofen, naproxen or any other NSAIDs. Repeat upper endoscopy in 2 months to check healing. For pain , you can take Tylenol 1000 mg three times a day. Pending Studies at Discharge: Yes Studies:: Biopsy from endoscopy Stand-Alone Forms: My [facility], Smoking Cessation Medications and DC Order Prescriptions: New pantoprazole [Protonix] 40 mg tablet,delayed release (DR/EC) 40 mg PO BID 30 Days Qty: 60 0RF Continued Tremfya 100 mg/mL auto-injector 100 mg subcut .COMPLEX Qty: 1 3RF Rx Instructions: 100 mg subcutaneously Every 12 weeks; Discontinued naproxen sodium [Aleve] 220 mg Tablet 220 mg PO BID PRN (Reason: Pain) Discharge Orders: Discharge Order (Routine); Ordered 09/25/23 Ordered By: Diony Lizarraga Admission Data Admit Date/Time: 09/24/23 15:01 Attending Provider: Diony Lizarraga Admit Provider: Devon Portillo Primary Care Provider: Genaro Blanchard Other Providers: Devon Portillo; Contreras Brown; Puma Nesbitt
--- NOTE | 2023-09-25 15:13 | Anesthesiology Progress Note ---
Date of Service September 25, 2023 Anesthesia Post Procedure Vital Signs Vital Signs: Temp Pulse Pulse Resp BP BP Pulse Ox 09/25/23 13:56 36.8 C 75 16 124/72 143/85 H 98 09/25/23 12:58 75 16 124/72 98 09/25/23 12:33 76 16 133/70 98 09/25/23 12:18 85 16 116/86 95 09/25/23 11:10 36.8 C 89 18 119/81 97 09/25/23 11:09 36.3 C L 82 18 143/85 H 96 09/25/23 08:14 36.6 C 84 17 123/78 96 09/25/23 05:58 85 09/25/23 03:34 36.6 C 87 18 118/77 98 09/24/23 23:53 36.6 C 93 H 18 127/82 97 09/24/23 23:07 36.6 C 93 H 18 127/82 97 09/24/23 20:07 96 H 18 120/94 96 09/24/23 20:07 09/24/23 19:53 96 H 18 120/94 95 Pulse Ox O2 Del Method O2 Del Method 09/25/23 13:56 09/25/23 12:58 Room Air 09/25/23 12:33 Room Air 09/25/23 12:18 Room Air 09/25/23 11:10 Room Air 09/25/23 11:09 Room Air 09/25/23 08:14 Room Air 09/25/23 05:58 09/25/23 03:34 Room Air 09/24/23 23:53 Room Air 09/24/23 23:07 Room Air 09/24/23 20:07 Room Air 09/24/23 20:07 96 Room Air 09/24/23 19:53 Room Air Transfer of Care Handoff Completed per policy Notes Mental Status: alert / awake / arousable and participated in evaluation Patient Amnestic to Procedure: Yes Nausea / Vomiting: adequately controlled Pain: adequately controlled Airway Patency, RR, SpO2: stable & adequate BP & HR: stable & adequate Hydration State: stable & adequate Anesthetic Complications: no major complications apparent
[2023-09-25] MEDS ORDERED: PANTOprazole 40 MG TAB PO SCH (21:00)
== END 2023-09-25 15:02 | disposition home or self-care (01) ==
LOC: EDINP 11:48 → ED 11:48 → SUATTDRO 15:01 → EDINP 17:50 → 2N 23:05